=== PATIENT | male | born 1950 | race Caucasian/White ===

== ENCOUNTER → 2016-11-21 | Outpatient (CLI) | payer MEDICARE, OTHER ==
[~2016-11-21] MED LIST: AUGMENTIN600 MG/5 M GT; CALCIUM + VITAM1 TAB PEG; CALCIUM CITRATE1 T12 GT; CARDURA PO; CARDURA1 MG GT; CERTAVITE W/LUT1 TA1 PEG; CLOPIDOGREL75 MG GT; CLOPIDOGREL75 MG PEG; COLACE50 MG/5 ML GT; DIASTAT10 MG PR; FAST RELIEF LAX10 MG PR; FAST RELIEF LAX10 MG RC; KEPPRA250 MG GT; KEPPRA500 M1 PEG; KEPPRA500 MG GT; KEPPRA750 MG PO; LACTULOSE10 G/15 ML PO; LIPITOR20 MG PEG; MAALOX SUSPENS355 ML PO; METOPROLOL TAR25 MG GT; METOPROLOL TAR25 MG PEG; MEVACOR PO; MEVACOR10 MG; MEVACOR40 MG GT; MIACALCIN4 ML; MIRALAX17 G1 GT; MIRALAX17 GM; MIRALAX17 GM PEG; MIRALAX255 GM PO; MYLANTA400 MG GT; NEXIUM20 MG GT; OMEPRAZOLE20 M2 PEG; PREVACID PO; PRILOSEC20 MG GT; PROBIOTIC1 EACH PO; RISAMINE OINTM113 GM; RISAMINE OINTM113 GM TOP; SENNA CONCENTR8.6 MG PEG; SENNA LAXATIVE8.6 M1 GT; SENNA-LAX8.6 M1 PO; TYLENOL325 M1 PO; VITAMIN D1000 UNI1 GT; VITAMIN D1000 UNI2 PEG; [UNRECOGNIZED DRUG - OTHER] PO
== END | disposition home or self-care (01) ==
LOC: CRAD 09:44
DX: R13.10 Dysphagia, unspecified (principal)
CPT/HCPCS: 74230; 92611; G8996-GN; G8997-GN; G8998-GN

== ENCOUNTER → 2016-12-20 | Outpatient (CLI) | payer MEDICARE, OTHER | END | disposition home or self-care (01) | LOC: CRAD 09:00 | DX: R13.10 Dysphagia, unspecified (principal) | CPT/HCPCS: 74230; 92611; G8996-GN; G8997-GN; G8998-GN ==

== ENCOUNTER 2017-01-31 10:15 | Emergency (ER) | payer MEDICARE, OTHER ==
--- NOTE | ~2017-01-31 | EKG ---
PATIENT: NOE ALCANTAR UNIT #: [id number] Ventricular Rate: 97 BPM Atrial Rate: 97 BPM P-R Interval: 124 ms QRS Duration: 84 ms Q-T Interval: 352 ms QTC Calculation(Bezet): 447 ms P [place]: 55 degrees Calculated R [place]: 66 degrees Calculated T [place]: 46 degrees Diagnosis Line: Sinus rhythm Diagnosis Line: Nonspecific ST abnormality Diagnosis Line: Abnormal ECG Diagnosis Line: When compared with ECG of 02-SEP-2014 10:19, Diagnosis Line: Nonspecific T wave abnormality now evident in Diagnosis Line: Inferior leads Diagnosis Line: Confirmed by MATTHEW LIU MD ([id number]) on Diagnosis Line: 02/01/2017 6:45:16 AM INTERPRETING MD: DAMARIS
[2017-01-31 11:26] LABS: BASOPHIL% 0.2 % (0-2.5); DIFF IND YES; EOSINOPHIL% 0.1 % (0.0-7.0); HEMATOCRIT 45.4 % (38.0-50.0); HEMOGLOBIN 14.7 gm/dL (13.0-16.0); LYMPHOCYTE# 0.6 X10e3 (1.0-3.5); LYMPHOCYTE% 3.2 % (17.0-45.0); MEAN CELL VOLUME 92.8 FL (83-96); MEAN CORPUSCULAR HGB CONC 32.4 g/dL (30-36); MEAN PLATELET VOLUME 10.6 FL (6.5-11.5); MONOCYTE# 1.2 X10e3 (0-1.0); MONOCYTE% 6.9 % (3.0-12.0); NEUTROPHIL# 16.2 X10e3 (1.5-7.1); NEUTROPHIL% 89.6 % (40-75); PLATELET COUNT 150 X10e3 (140-420); RED BLOOD COUNT 4.89 X10e (3.90-5.60); RED CELL DISTRIBUTION WIDTH 14.3 % (11.0-15.5)
[2017-01-31 11:39] LABS: ALBUMIN SERUM 4.1 g/dL (3.5-5.0); BILIRUBIN, DIRECT 0.2 mg/dL (0.0-0.2); BILIRUBIN,INDIRECT 1.7 mg/dL (0.0-0.9); BILIRUBIN,TOTAL 1.9 mg/dL (0.2-2.0); BUN/CREATININE RATIO 23.75; CALCIUM SERUM 9.4 mg/dL (8.4-10.2); CREATININE SERUM 0.8 mg/dL (0.6-1.4); GLOM FILT RATE Estimated 92.5 mL/min (>60); POTASSIUM 3.5 mmol/L (3.5-5.1); PROTEIN TOTAL SERUM 7.7 g/dL (6.0-8.3)
[2017-01-31 11:47] LABS: ANISOCYTOSIS SL; PLATELET ESTIMATE NORMAL (NORMAL); RBC NORMAL YES
== END 2017-01-31 14:24 ==
LOC: CED 10:15
PROVIDERS: Emergency Medicine
DX: R55 Syncope and collapse (principal); G40.909 Epilepsy, unspecified, not intractable, without status epilepticus; K21.9 Gastro-esophageal reflux disease without esophagitis; M85.80 Other specified disorders of bone density and structure, unspecified site; Z90.49 Acquired absence of other specified parts of digestive tract
CPT/HCPCS: 36415; 80048; 80076; 82947; 85025; 93005; 96360; 99284

== ENCOUNTER → 2017-03-01 | Outpatient (CLI) | payer MEDICARE, OTHER | END | disposition home or self-care (01) | LOC: CSSDAY 09:13 | DX: M81.0 Age-related osteoporosis without current pathological fracture (principal) | CPT/HCPCS: 96372; J0897 ==

== ENCOUNTER → 2017-03-11 | Outpatient (CLI) | payer MEDICARE, OTHER ==
--- NOTE | ~2017-03-11 | HM ---
Unit #: [id number] #: [id number] Patient: NOE ALCANTAR [id number] [facility]. [address] [address] [id number] MR#: [id number] NAME: NOE ALCANTAR. : 1950 SEX: M STUDY DATE/TIME: UNIT: [facility] [place] ROOM: STUDY DESCRIPTION: Holter Monitor Attending Physician: Gi Valdovinos M.D. CARDIOLOGY REPORT EXAM 24 Hour Holter Monitor DATE APPLIED 03/11/2017 DATE SCANNED 03/19/2017 ORDERED BY Gi Valdovinos M.D. READ BY Gi Valdovinos M.D. INDICATION Syncope. FINDINGS Underlying rhythm is normal sinus rhythm with an average heart rate of 79 beats per minute, minimum heart rate of 50 beats per minute, and a maximum heart rate of 147 beats per minute. The minimum heart rate of 50 beats per minute is noted at 00:31 a.m. The maximum heart rate of 147 beats per minute is noted at 9:23 a.m. The patient had a 1.4 second pause noted at 1:08 p.m. The patient had 5 single premature ventricular complex and 10 single premature atrial complex noted. Patient did not record any symptoms. CONCLUSION 1. Underlying rhythm is normal sinus rhythm with an average heart rate of 79 beats per minute, minimum heart rate of 50 beats per minute and a maximum heart of 147 beats per minute. 2. No sustained atrial or ventricular arrhythmias noted. 3. No significant pauses noted. 4. No significant premature ventricular complex or premature ventricular complex noted. 5. Patient did not record any symptoms. 6. Normal 24 hour Holter report. Dictated by... Unit #: [id number] #: [id number] Patient: NOE ALCANTAR Kahlil Guzman TD: 03/22/2017 06:58 JOB #: [id number] CARDIOLOGY REPORT Page 1 of 1 X Gi Valdovinos MD <ELECTRONICALLY SIGNED> 05/02/17 1524 HOLTER MONITOR REPORT
== END | disposition home or self-care (01) ==
LOC: CEKG 14:15
DX: R55 Syncope and collapse (principal)
CPT/HCPCS: 93225; 93226

== ENCOUNTER → 2017-03-14 | Outpatient (CLI) | payer MEDICARE, OTHER | END | disposition home or self-care (01) | LOC: CRAD 09:50 | DX: R13.10 Dysphagia, unspecified (principal) | CPT/HCPCS: 74230; 92611; G8996-GN; G8997-GN; G8998-GN ==